=== PATIENT | female | born 1990 | race Caucasian/White ===

== ENCOUNTER → 2022-01-19 11:59 | Outpatient (CLI) | payer OTHER, MEDICAID, SELFPAY ==
--- NOTE | 2022-01-19 | DI.US.S_ITS ---
PROCEDURE: US OB >= 14 WEEKS FETUS INDICATIONS: 20 WEEK anatomy SCAN OUTSIDE/PRIOR DATING DATA: Last menstrual period (LMP): 07/26/2021. LMP-based estimated date of delivery (RAMIRO): 05/02/2022. First dating scan (date and location): 01/19/2022. Estimated date of delivery (RAMIRO) from first dating scan: 05/02/2022. TECHNIQUE: Real-time scanning was performed of the fetus, with image documentation and biometric measurements. COMPARISON: None. FINDINGS: General: A single living intrauterine gestation is present. Presentation: Breech. Placenta: Placental position is posterior , without previa. Amniotic fluid index: 17.3 cm, normal range is 5-24 cm. Single deepest vertical pocket is 5.4 cm. heart rate: 147 beats per minute. Maternal cervical canal: 4.4 cm long. Normal lower limit is 2.5 cm. biometrics: Biparietal diameter: 6.2 cm, 25 week 2 day Head circumference: 23.3 cm, 25 week 2 day Abdominal circumference: 20.5 cm, 25 week 1 day Femur length: 4.7 cm, 25 week 4 day Clinically estimated gestational age: 25 week 2 day Composite gestational age from present scan: 25 week 2 day Estimated weight and percentile: 796 g, 41 percentile Anatomic survey: Neuro: Ventricles are non-dilated at less than 10 mm. Cisterna magna is normal at 3-11 mm. Cerebellum is normal in size and morphology. Nuchal skin fold: Normal at less than 6 mm between 14-21 weeks gestational age. Face: Nose and lips, facial profile are normal. Spine: No evidence for spina bifida. Heart: 4-chambered heart is present, with normal ventricular outflow tracts. Diaphragm: Diaphragm is intact. Stomach: Left-sided stomach is present. Kidneys: No hydronephrosis. Normal is less than 5 mm in 2nd trimester, less than 7 mm in 3rd trimester. Cord: 3-vessel cord has orthotopic insertion. Bladder: Normal in size. Extremities: All 4 extremities identified. IMPRESSION: Single live intrauterine consistent with a 25 week 2 day gestation Approved by: Gentry Marie M.D. on 01/22/2022 at 10:04
== END ==
PROVIDERS: Referring Provider Nurse Practitioner Obstetrics & Gynecology; Visit Provider Nurse Practitioner Obstetrics & Gynecology
DX: Z36.89 Encounter for other specified antenatal screening (principal); Z3A.25 25 weeks gestation of pregnancy
CPT/HCPCS: 76811

== ENCOUNTER 2022-04-20 19:50 | Outpatient (CLI) | payer OTHER, MEDICAID, SELFPAY ==
--- NOTE | 2022-04-20 20:17 | PM.OBTRLD ---
Visit Information Visit Information Date of evaluation: 04/20/22 Primary OB Provider: Holli Bowie On-call OB Provider: Holli Bowie Reason for Evaluation: Yes non-stress test non-stress test reason: decreased movement Comments/Additional reasons for admission: 31YO @ 38wk2d here for evaluation for decreased FM. Took a nap this evening and woke up around 5:15pm and hasn't felt movement since waking up. Feels like her abdomen is tight, bit no contractions, VB or LOF. Uncomplicated care w/ CNM. Vital Signs Vital Signs: BP 130/75, HR 95, T 36.4C Temporal Review of Systems Review of Systems ROS: Yes All systems reviewed with the patient and are negative except as otherwise documented Exam Vital Signs (past 8 hours): see above Presentation: vertex Other: CE deferred- not indicated Evaluation Evaluation Baseline heart rate: 145 Variability: Moderate (11-25) monitor accelerations: Present Monitor Decelerations: Absent Contraction Frequency (minutes): 0 Category of Tracing: Reactive Diagnosis, Plan/Disposition Final Diagnosis (1) Decreased movement: Status: Acute Problem details: Movement felt by patient during monitoring w/ reactive NST Plan/Disposition Plan: Reassurance of normal given. D/C to home with routine precautions. OB Disposition: home
== END 2022-04-20 20:22 | disposition home or self-care (01) ==
LOC: OB 04-26 13:45
PROVIDERS: Referring Provider Nurse Practitioner Obstetrics & Gynecology; Visit Provider Nurse Practitioner Obstetrics & Gynecology
DX: O36.8130 Decreased fetal movements, third trimester, not applicable or unspecified (principal); Z3A.38 38 weeks gestation of pregnancy
CPT/HCPCS: 59025; G0378; G0379

== ENCOUNTER 2022-04-29 05:17 | Inpatient (IN) | payer OTHER, MEDICAID, SELFPAY ==
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
[2022-04-29 06:27] VITALS: BP 109/63; PULSE 105; RESP 16; TEMP 36.5
[2022-04-29 06:33] LABS: Add Manual Diff / Slide Review NO; Basophils Absolute Auto 0 /uL (0-100); Basophils Percent Auto 0.3 % (0-2); Eosinophils Absolute Auto 100 /uL (0-450); Eosinophils Percent Auto 0.5 % (2-4); Hematocrit 40.8 % (36-46); Hemoglobin 13.8 g/dL (12.0-16.0); Lymphocytes Absolute Auto 1500 /uL (1100-4500); Lymphocytes Percent Auto 12.8 % (25-40); Mean Corpuscular HGB Conc 33.8 % (30-36); Mean Corpuscular Hemoglobin 29.7 PG (26-34); Monocytes Absolute Auto 400 /uL (0-900); Monocytes Percent Auto 3.6 % (3-14); Neutrophils Absolute Auto 9700 /uL (1500-7000); Neutrophils Percent Auto 82.8 % (50-75); Platelet Count 156 X10^3/uL (150-400); Red Blood Cell Count 4.64 X10^6/uL (4.0-5.2); Red Cell Distribution Width 14.1 % (11.6-14.8); White Blood Cell Count 11.7 X10^3/uL (4.5-11.0)
[2022-04-29 07:44] VITALS: BP 134/66
[2022-04-29] MEDS: OXYTOCIN PREMIX 30 UNIT/500 ML PLAST..BAG 200 UNIT IV (08:48)
[2022-04-29] MEDS: LACTATED RINGERS 1,000 ML 100 ML IV (08:50)
--- NOTE | 2022-04-29 09:20 | P.PCNOB_ITS ---
Labor & Delivery Delivery date: 04/29/22 Delivery augmentation: rupture of membranes (AROM for lightly meconium stained fluid) Delivery monitor: external FHT Route of delivery: L&D Laceration Description: Perineal - 1st Degree (hemostatic without repair) Quantitative Blood Loss: 332 Anesthesia Type: None Narrative: Radha arrived in active labor. Labored in tub then transferred to bed to labor on hands and knees with support from CUB. Per patient request, AROM for lightly meconium stained fluid. FHR was reassuring by Doppler throughout labor. She moved to rest on her left side then said she felt spontaneous urge to push. Warm compresses applied. Pushed very well to with encouragement from CNMs, RNs, and Jourdan. Baby's head delivered in OA position with next push. Restituted to RYAN. Encouraged Radha to push hard again. Anterior shoulder delivered followed by posterior shoulder and rest of body for NSVB of baby bertha Garcai at 0839. APGARs 7,9. Radha turned onto back and baby placed on her abdomen for drying and stimulation. Cord clamping delayed for 8 minutes then clamped by SNM and cut by FOB. Pitocin started at 250 for active management of third stage. Placenta delivered intact, [place], with gentle cord traction, with 3 vessel cord. Perineum inspected and found to have small 1st degree perineal laceration that was hemostatic without repair. QBL 332 mL. Instrument and lap count correct. Radha and landy Garcia doing well and were left in room in stable condition. Jourdan did [id number]. Radha and Jourdan thrilled with landy Garcia. [place] Baby 1: Infant gender: Male Presentation: vertex Position: Left Occiput Anterior Placenta delivery description: Spontaneous Cord Vessel Description: 3 Vessels score (1 min): 7 score (5 min): 9 Narrative: Baby not yet weighed at time of note. Plan for aftercare: Routine care
[2022-04-29] MEDS: DERMOPLAST SPRAY 20% 60 ML 1 SPRAY TOP (10:08)
[2022-04-29] MEDS: IBUPROFEN 600 MG TABLET PO ×2 (10:08→17:30)
[2022-04-29] MEDS: SERTRALINE 50 MG TABLET 100 MG PO (10:09)
--- NOTE | 2022-04-29 11:25 | P.DS_ITS ---
Discharge Providers Provider Date of admission: 04/29/22 05:17 Discharge Date: 04/30/22 Primary care physician: Doctor Edna MD Consults: 04/29/22 06:05 Consult to Anesthesiology Urgent Comment: Consulting Provider: Anesthesiologist Reason for consultation: Epidural Has provider been notified: No 04/30/22 09:13 Consult to Children'S Librarian Routine Comment: Discharge provider: Ashwini Garner CNM, ARNP Summary Hospital Course Date Patient Seen: 04/30/22 Time Patient Seen: 08:15 Diagnoses: Uncomplicated term NSVB. Hospital Course: Arrived in spontaneous labor. Progressed well, augmented with AROM. MSAF noted. Normal 2nd stage resulted in NSVB over 1st degree laceration, unrepaired and hemostatic. QBL 332 mL. Normal course. Peripartum Data Delivery Method: Natural Vaginal Laceration Description: Perineal - 1st Degree [place] 1: Gender: Male Discharge Diagnosis (1) (normal spontaneous vaginal delivery): Start Date: 04/29/22 Start Time: 08:39 Status: Acute Status at Discharge Cognitive/behavioral status at discharge: oriented, at baseline, oriented and calm Functional status at discharge: independent ambulation Overall status at discharge: patient is back to baseline Time Spent with Patient Time attestation: Total time spent providing and/or coordinating discharge services: Time spent: Less than 30 minutes Specific discharge activities: Review warning signs including bleeding precautions, mood changes (baby blues versus PPMD), risk of blood clot, normal healing. Objective Labs 04/29/22 06:15 Labs: Laboratory Results - last 24 hr 04/29/22 04/29/22 06:15 06:15 WBC 11.7 H RBC 4.64 Hgb 13.8 Hct 40.8 MCV 88.0 MCH 29.7 MCHC 33.8 RDW 14.1 Plt Count 156 Neut % (Auto) 82.8 H Lymph % (Auto) 12.8 L [place] % (Auto) 3.6 Eos % (Auto) 0.5 L Baso % (Auto) 0.3 Neut # (Auto) 9700 H Lymph # (Auto) 1500 [place] # (Auto) 400 Eos # (Auto) 100 Baso # (Auto) 0 Blood Type A Positive Antibody Screen Negative Exam Vital Signs (past 8 hours): - 04/29/22 06:27 04/29/22 07:44 Temperature 97.7 F Pulse Rate 105 H Respiratory Rate 16 Blood Pressure 109/63 134/66 Const General: healthy appearing and comfortable Nutritional Appearance: average body habitus Orientation: alert, awake and oriented x3 Eyes General: appearance normal, both eyes and all related structures Neck Neck: normal visual inspection Chest Breast inspection: normal inspection of the breasts Resp Effort & Inspection: normal respiratory effort GI Inspection: other (Uterus firm, midline, U-1. ) Other: voiding normally. Bleeding light to moderate without clots. Skin General: no rashes or lesions noted Neuro General: gait normal and normal light touch, pain and propioception Extrem General: normal to inspection and full ROM Psych Appearance: grossly normal Mental Status: mental status grossly normal Discharge Plan Discharge Plan Patient Disposition: Home Provider Discharge Comment: home with Discharge orders & Medications Prescriptions: Continued sertraline [Zoloft] 100 mg tablet 100 mg PO DAILY Discontinued aspirin 81 mg tablet,chewable 81 mg PO DAILY valacyclovir [Valtrex] 500 mg tablet 500 mg BID Label Comments: TAKE ONE TABLET BY MOUTH TWICE DAILY Follow up/Referrals: Ashwini Garner, STEVEN, RULES EXAMINER [Advanced Fire Protection Specialist] - (2 week telehealth visit as scheduled 6 week visit as scheduled) Doctor Bishop MD [Primary Care Provider] - Diet/Activity/Treatments Diet: Regular Activity: low celaya for 2 weeks to allow for healing. Skin/Wound/Dressing Care Skin care: usual care Report to your healthcare provider any signs of infection, such as:: chills, fever, increased pain, unusual drainage and unusual redness Visit Report/Discharge Packet Instructions: DI for Labor and Delivery, Vaginal Stand Alone Forms: Patient Portal/API, Stroke Signs & Symptoms Discharge Data Primary Care Provider: Doctor Edna
[2022-04-29] MEDS: ACETAMINOPHEN 325 MG TABLET 975 MG PO ×2 (13:30→22:45)
[2022-04-30] MEDS: IBUPROFEN 600 MG TABLET PO (04:32)
[2022-04-30] MEDS: ACETAMINOPHEN 325 MG TABLET 975 MG PO (08:45)
[2022-04-30] MEDS: SERTRALINE 50 MG TABLET 100 MG PO (08:48)
[2022-04-30 10:46] VITALS: BP 103/62; PULSE 81; RESP 16; TEMP 36.6
== END 2022-04-30 10:30 | disposition home or self-care (01) | DRG 560 ==
PROVIDERS: Admitting Provider Advanced Practice Midwife; Referring Provider Nurse Practitioner Obstetrics & Gynecology; Visit Provider Advanced Practice Midwife
DX: O98.32 Other infections with a predominantly sexual mode of transmission complicating childbirth (principal); A60.9 Anogenital herpesviral infection, unspecified; Z3A.39 39 weeks gestation of pregnancy; Z37.0 Single live birth; O77.0 Labor and delivery complicated by meconium in amniotic fluid
CPT/HCPCS: 36415; 59050; 85025; 86850; 86900; 86901; G0379; J2590

== ENCOUNTER → 2022-07-18 11:44 | Outpatient (CLI) | payer OTHER, MEDICAID, SELFPAY ==
[2022-07-18 12:27] LABS: Influenza A - CEPHEID Flu A NEGATIVE (NEGATIVE); Influenza B - CEPHEID Flu B NEGATIVE (NEGATIVE); Respiratory Syncytial Virus Negative (Negative)
[2022-07-18 12:28] LABS: COVID-19 CEPHEID 4-PLEX PCR Negative (Negative)
== END ==
PROVIDERS: Family Provider Advanced Practice Midwife; PCP Advanced Practice Midwife; Visit Provider Nurse Practitioner Family
DX: R09.81 Nasal congestion (principal); R21 Rash and other nonspecific skin eruption; R51.9 Headache, unspecified
CPT/HCPCS: 0241U

== ENCOUNTER 2023-05-15 09:00 | Outpatient (RCR) | payer OTHER, MEDICAID, SELFPAY ==
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
--- NOTE | 2022-12-06 16:07 | PT.OPPOC ---
Physical, Occupational & Speech Therapy At [facility] Current Diagnoses Stress incontinence (female) (male) (12/06/22) Pelvic and perineal pain (12/06/22) Visit Care Team Role Provider Type Ashwini Garner CNM, ARNP Attending Provider Advanced Document Control Manager Family Provider Primary Care Provider Referring Provider Specialty: FACTORER Address: [address] [place] [address], [id number] Email: [email or web address] Plan Of Care PT-OP-T Assessment and Plan Start: 08/14/22 17:12 Freq: Status: Active Protocol: Document 12/06/22 14:15 [facility] (Rec: 12/06/22 14:58 AMH [id number]) Physical Therapy Assessment Goals Four Impairment Decreased L hip mobility Impairment Initial Hip PROM: IR 30 L, 30 R; ER 65 L, 70 R. Short Term Goal (STG) Pt will be independent with a HEP of stretches for hip IR/ER . Goal met STG Duration 12/06/22 Tower Supervisor Goal (LTG) Pt will demonstrate improved bilateral hip IR/ER mobility. Good progress, left hip is tighter than the right with hip ER LTG Duration 02/28/23 Three Impairment Urinary incontinence with an urge Short Term Goal (STG) Pt will be educated in urinary delay technique. GOAL MET Tower Supervisor Goal (LTG) Pt will be able to maintain urinary continence in the presence of a strong urge. Excellent progress LTG Duration 02/28/23 Two Impairment Urinary incontinence with a strong cough, sneeze or with laughing. Impairment (PF Initial strength: Long Hold 3 secs, Quick Flicks 8 reps in 10 secs). Short Term Goal (STG) Improve PF strength per Long Hold to 10 sec's and Quick Flicks 10 reps in 10 secs and will be able to maintain continence in the presence of a cough, sneeze and with laughing. Goal met in supine STG Duration 02/28/23 Tower Supervisor Goal (LTG) Pt will improve PF strength to have decreased complaints of urinary stress incontinent symptoms with hiking for improved pelvic health. good progress towards goal LTG Duration 02/28/23 One Impairment Pt lacks an independent self care HEP. Short Term Goal (STG) Pt educated in proper transfers to lessen core abdominal pressure. STG Duration 09/21/22 (09/25/22: MET GOAL) Custodial Goal (LTG) Pt will be independent in a self care HEP for PF strengthening. good progress towards goal LTG Duration 02/28/23 Assessment Summary Assessment Radha is showing good progress with pelvic floor strengthening. She is feeling her symptoms are lessening and urgency has decreased and leaking is decreasing. She is still feeling discomfort with intercourse. Radha has also felt some pain from her neck and feels forward in her posture. She has been shown anterior chest stretches to help with this with a foam roll and she tolerated this well today. Radha would benefit from continue PT working towards strengthening upright positions , continued postural work and core stabilization. Physical Therapy Plan Frequency and Duration Frequency of Treatment 1x/Week Duration of treatment (weeks) 12 Plan of Care Start Date 12/06/22 Plan of Care End Date 02/28/23 Therapeutic Interventions Therapeutic Interventions Home Exercise Program,Joint Mobilizations,Manual Therapy, Neuromuscular Re-education, Self-Care/Home Management,Soft Tissue Mobilization,Taping, Therapeutic Activities, Therapeutic Exercises Modalities Electric Stimulation Next Visit Focus/Plan Next Note Type Treatment Note Next Visit Plan continue progressing pelvic floor, begin with stretches next visit and review foam roll stretch to open up the anterior chest muscles as pt is c/o neck and left sided pain. Plan of Care Dates Plan of Care Start Date 12/06/22 Plan of Care End Date 02/28/23 Electronically Signed by: Kim Ruff, PT 12/06/22 [id number] If you are in agreement with this Plan of Care, please return a signed and dated copy. I have reviewed this Plan of Care and certify that the skilled therapy services above are required to meet the patient?s needs. Physician Signature Date Printed Name and Credentials Clinical Instructor Signature Printed Name and Credentials
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
--- NOTE | 2023-03-14 10:17 | PT.OPPOC ---
Physical, Occupational & Speech Therapy At [facility] Current Diagnoses Stress incontinence (female) (male) (03/14/23) Pelvic and perineal pain (03/14/23) Visit Care Team Role Provider Type Ashwini Garner CNM, ARNP Attending Provider Advanced Gut Cleaner Family Provider Primary Care Provider Referring Provider Specialty: CODE OFFICIAL Address: [address] [place] [address], [id number] Email: [email or web address] Plan Of Care PT-OP-T Assessment and Plan Start: 08/14/22 17:12 Freq: Status: Active Protocol: Document 03/14/23 09:15 [facility] (Rec: 03/14/23 10:15 [facility] [id number]) Physical Therapy Assessment Goals Five Impairment Radha lacks lateral hip strength for stability with single leg squats Usp Goal (LTG) Radha is able to perform 10 single leg squats on each leg demonstrating improved lateral hip strength LTG Duration 12 weeks Four Impairment Decreased L hip mobility Impairment Initial Hip PROM: IR 30 L, 30 R; ER 65 L, 70 R. Short Term Goal (STG) Pt will be independent with a HEP of stretches for hip IR/ER . 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 Good progress, left hip is tighter than the right with hip ER LTG Duration 02/28/23 Three Impairment Urinary incontinence with an urge Short Term Goal (STG) Pt will be educated in urinary delay technique. GOAL MET Usp Goal (LTG) Pt will be able to maintain urinary continence in the presence of a strong urge. GOAL MET LTG Duration 02/28/23 Two Impairment Urinary incontinence with a strong cough, sneeze or with laughing. Impairment (PF Initial strength: Long Hold 3 secs, Quick Flicks 8 reps in 10 secs). Short Term Goal (STG) Improve PF strength per Long Hold to 10 sec's and Quick Flicks 10 reps in 10 secs and will be able to maintain continence in the presence of a cough, sneeze and with laughing. 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 good progress towards goal LTG Duration 02/28/23 One Impairment Pt lacks an independent self care HEP. Short Term Goal (STG) Pt educated in proper transfers to lessen core abdominal pressure. 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 good progress towards goal as now we are working on upright dynamic positions LTG Duration 02/28/23 Assessment Summary Assessment Radha is making great progress in PT with post pelvic floor and core strengthening. Symptoms of leakage and pelvic pain have decreased overall. pt would like to focus on flexibility and strengthening for the gluteals as she is doing better with pelvic floor strengthening in supine positions. Leakage is overall decreased and [place] is also improving and not as painful. She still feels low back discomfort and hip discomfort. Today we initiated standing dynamic squats with pelvic floor engagement and Radha tolerated this well Physical Therapy Plan Frequency and Duration Frequency of Treatment 1x/Week Duration of treatment (weeks) 12 Plan of Care Start Date 03/14/23 Plan of Care End Date 06/06/23 Therapeutic Interventions Therapeutic Interventions Home Exercise Program,Joint Mobilizations,Manual Therapy, Neuromuscular Re-education, Self-Care/Home Management,Soft Tissue Mobilization,Taping, Therapeutic Activities, Therapeutic Exercises Modalities Electric Stimulation Next Visit Focus/Plan Next Note Type Treatment Note Next Visit Plan review all standing dynamic exercise and progress to hops with pelvic floor contraction and lunges Plan of Care Dates Plan of Care Start Date 03/14/23 Plan of Care End Date 06/06/23 Electronically Signed by: Kim Ruff, PT 03/14/23 101 If you are in agreement with this Plan of Care, please return a signed and dated copy. I have reviewed this Plan of Care and certify that the skilled therapy services above are required to meet the patient?s needs. Physician Signature Date Printed Name and Credentials Clinical Instructor Signature Printed Name and Credentials
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
== END 2023-05-17 10:49 | disposition home or self-care (01) ==
LOC: PHYS 09:00
PROVIDERS: Absent Provider Advanced Practice Midwife; Family Provider Advanced Practice Midwife; PCP Advanced Practice Midwife; Referring Provider Advanced Practice Midwife; Visit Provider Advanced Practice Midwife
DX: N39.3 Stress incontinence (female) (male) (principal); R10.2 Pelvic and perineal pain
CPT/HCPCS: 97110; 97140; 97162; 97535